=== PATIENT | male | born 1975 | race African-American/Black ===

== ENCOUNTER 2019-02-12 00:37 | Emergency (ER) | payer SELFPAY ==
[2019-02-12 01:14] LABS: #Basophils 0.1 thou/uL (0.0-0.2); #Eosinphils 0.2 thou/uL (0.0-0.7); #Lymphocytes 2.7 thou/uL (1.20-3.40); #Monocytes 0.5 thou/uL (0.11-0.59); #Neutrophils 3.8 thou/uL (1.40-6.50); %Basophils 0.8 % (0.0-1.0); %Lymphocytes 36.6 % (21.0-51.0); %Monocytes 6.9 % (0.0-10.0); %Neutrophils 52.7 % (42.0-75.0); Hemoglobin 14.9 g/dL (14.0-18.0); Mean Corpuscular HGB CONC 34.3 g/dL (32.0-36.0); Mean Corpuscular Hemoglobin 31.6 pg (27.0-31.0); Mean Corpuscular Volume 92.1 fL (78.0-98.0); Mean Platelet Volume 6.9 fL (7.4-10.4); Platelet Count 244 thou/uL (130-400); RBC Distribution Width 12.8 % (11.5-14.5); Red Blood Cell (RBC) Count 4.71 mill/uL (4.70-6.10); White Blood Cell (WBC) Count 7.3 thou/uL (4.8-10.8)
[2019-02-12 01:35] LABS: ALT (SGPT) 17 U/L (8-55); AST (SGOT) 20 U/L (5-34); Albumin 4.2 g/dL (3.5-5.0); Alkaline Phosphatase 56 U/L (40-110); Anion Gap 10 mmol/L (10-20); BUN (Urea Nitrogen) 16 mg/dL (8.9-20.6); Bilirubin, Total 0.4 mg/dL (0.2-1.2); Calc. Creatinine Clearance 0 mL/min (70-130); Calcium 8.8 mg/dL (7.8-10.44); Carbon Dioxide 28 mmol/L (22-29); Chloride 104 mmol/L (98-107); Estimated GFR-MDRD 67; Globulin 2.9 g/dL (2.4-3.5); Glucose 100 mg/dL (70-105); Protein, Total 7.1 g/dL (6.0-8.3); Sodium 138 mmol/L (136-145)
[2019-02-12 04:06] LABS: Troponin I Less than 0.010 ng/mL (< 0.028)
--- NOTE | 2019-02-12 07:40 | RAD ---
Portable frontal chest radiograph: 02/12/2019 COMPARISON: None HISTORY: Chest pain FINDINGS: No focal consolidation or alveolar edema. Mild increased density in the medial left base [place] vascular structures or mild volume loss. Osseous structures grossly unremarkable. Heart and mediastinal contours appear within normal limits. IMPRESSION: No focal consolidation or alveolar edema.
--- NOTE | 2019-02-13 14:08 | EKG ---
Test Reason : Blood Pressure : / mmHG Vent. Rate : 065 BPM Atrial Rate : 065 BPM P-R Int : 154 ms QRS Dur : 098 ms QT Int : 412 ms P-R-T Axes : 052 014 013 degrees QTc Int : 428 ms Normal sinus rhythm Incomplete right bundle branch block Nonspecific T wave abnormality Abnormal ECG Confirmed by GONZALO FABIAN DO ([id number]), manager editorial AYAD ECHEVARRIA ([id number]) on 02/13/2019 2:08:30 PM Referred By: Confirmed By:GONZALO FABIAN DO
== END 2019-02-12 04:17 | disposition home or self-care (01) ==
LOC: ERS 00:37
DX: R07.89 Other chest pain (principal); R03.0 Elevated blood-pressure reading, without diagnosis of hypertension; R51 Headache; F17.210 Nicotine dependence, cigarettes, uncomplicated
CPT/HCPCS: 36415; 71045; 80053; 84484; 85025; 93005; 94760; 99406